=== PATIENT | female | born 1980 | race Native Hawaiian/Other Pacific Islander ===

== ENCOUNTER 2020-09-09 14:13 | Outpatient (CLI) | payer BC, OTHER | END 2020-09-09 19:59 | disposition home or self-care (01) | LOC: LAB 14:13 | PROVIDERS: ATTEND Nurse Practitioner Family | DX: U07.1 COVID-19 (principal); J32.9 Chronic sinusitis, unspecified; R05 Cough; Z11.59 Encounter for screening for other viral diseases | CPT/HCPCS: 87635; G2023; U0003 ==